=== PATIENT | male | born 1985 | race Caucasian/White ===

== ENCOUNTER 2019-07-01 01:26 | Emergency (ER) | payer SELFPAY ==
[~2019-07-01] VITALS: Ht 165.1 cm; Wt 83.9 kg
[2019-07-01 01:35] VITALS: Ht 165.1 cm; Wt 83.9 kg
[2019-07-01 02:21] LABS: BASOPHIL % 0.1 % (0-2); PLATELET COUNT 196 x10^3mcL (130-400); RED CELL DISTRIBUTION WIDTH 13.3 % (11.5-14.5)
[2019-07-01 02:30] VITALS: BP 229/160
[2019-07-01 02:38] LABS: BILIRUBIN TOTAL 0.49 mg/dL (0.20-1.00); CALCIUM 8.5 mg/dL (8.5-10.1); CARBON DIOXIDE 20.9 mmol/L (21-32); POTASSIUM SERUM 4.1 mmol/L (3.5-5.1); TOTAL PROTEIN, SERUM 6.3 g/dL (6.4-8.2)
[2019-07-01 02:49] LABS: ALBUMIN 3.2 g/dL (3.4-5.0)
[2019-07-01 02:50] LABS: CREATININE SERUM 6.8 mg/dL (0.7-1.3)
== END 2019-07-01 02:30 | disposition short-term general hospital (02) ==
LOC: ED 01:26
PROVIDERS: Emergency Medicine
DX: I16.9 Hypertensive crisis, unspecified (principal); I21.09 ST elevation (STEMI) myocardial infarction involving other coronary artery of anterior wall; J81.0 Acute pulmonary edema; Z98.890 Other specified postprocedural states
CPT/HCPCS: J2270; J3490; Q0092